=== PATIENT | male | born 1955 | race Caucasian/White ===

== ENCOUNTER 2025-03-13 08:36 | Day surgery (SDC) | payer MEDICARE, OTHER ==
[2025-03-13] MEDS: Lactated Ringers 1,000 ML IV SCH (09:17)
[2025-03-13] MEDS ORDERED: fentaNYL 100 MCG/2 ML SDV ONE (09:46)
[2025-03-13] MEDS ORDERED: Propofol 200 MG/20 ML SDV ONE (09:46)
[2025-03-13] MEDS ORDERED: Midazolam 1 MG/ML 2 ML SDV ONE (09:46)
== END 2025-03-13 12:17 | disposition home or self-care (01) ==
LOC: JP.SDS 08:36
PROVIDERS: ATTEND Surgery
DX: Z12.11 Encounter for screening for malignant neoplasm of colon (principal); D12.4 Benign neoplasm of descending colon; D12.8 Benign neoplasm of rectum
CPT/HCPCS: 00811; 45380; 45385; 88305; J2704; J3010; J7120; J2250

== ENCOUNTER 2025-04-18 18:05 | Emergency (ER) | payer MEDICARE, OTHER ==
[2025-04-18 19:15] LABS: BASOPHILS ABSOLUTE AUTO 0.03 K/uL (0.00-0.10); BASOPHILS PERCENT AUTO 0.5 % (0.1-1.3); EOSINOPHILS ABSOLUTE AUTO 0.05 K/uL (0.00-0.40); EOSINOPHILS PERCENT AUTO 0.8 % (0.0-5.4); IMMATURE GRAN PERCENT AUTO 0.3 % (0.0-0.7); LYMPHOCYTES ABSOLUTE AUTO 0.39 K/uL (0.8-3.3); LYMPHOCYTES PERCENT AUTO 6.1 % (11.4-47.7); MONOCYTES ABSOLUTE AUTO 0.52 K/uL (0.20-0.90); MONOCYTES PERCENT AUTO 8.2 % (3.3-12.6); NEUTROPHILS ABSOLUTE AUTO 5.34 K/uL (1.0-7.6); NEUTROPHILS PERCENT AUTO 84.1 % (40.0-78.1); PLATELET COUNT,PLT 159 K/uL (130-375); RED BLOOD CELL COUNT 5.23 M/uL (4.14-5.76); WHITE BLOOD CELL COUNT,WBC 6.4 K/uL (3.2-11.0)
[2025-04-18] MEDS: Ketorolac 15 MG/ML SDV IVPUSH ONE (19:22)
[2025-04-18 19:23] LABS: IMMATURE GRAN ABSOLUTE AUTO 0.02 K/uL (0.00-0.23)
[2025-04-18 19:50] LABS: A/G RATIO 0.8 (1.2-2.2); ALANINE AMINOTRANSFERASE,ALT 143 U/L (12-78); ASPARTATE AMNIOTRANSFERASE,AST 90 U/L (15-37); BILIRUBIN TOTAL 0.8 mg/dL (0.2-1.0); BLOOD UREA NITROGEN,BUN 20 mg/dL (7-18); CARBON DIOXIDE,CO2 26 mmol/L (21-32); CHLORIDE,CL 94 mmol/L (100-108); CREATININE 2.1 mg/dL (0.8-1.3); EST CRCL DRUG DOSING (CG) 36.46 mL/min; ESTIMATED GFR 33 mL/min (>60); GLUCOSE RANDOM 128 mg/dL (74-106); POTASSIUM,K 3.9 mmol/L (3.6-5.2); PROTEIN TOTAL,TP 7.7 g/dL (6.4-8.2); SODIUM,NA 131 mmol/L (140-148); TROPONIN I HIGH SENSITIVITY 10.9 pg/mL (<=60.3)
[2025-04-18] MEDS: Iopamidol 612 MG/ML 150 ML Bottle IV SCH (22:00)
[2025-04-18 23:47] LABS: APPEARANCE,URINE CLEAR (CLEAR); GLUCOSE,URINE NEGATIVE (NEGATIVE); OCCULT BLOOD,URINE TRACE-INTACT (NEGATIVE)
[2025-04-18 23:51] LABS: EPITHELIAL CELLS,URINE NOT SEEN
[2025-04-23 19:24] LABS: ANAPLASMA PHAGOCYTOPHILUM PCR Not Detected; BABESIA MICROTI BY PCR Not Detected; EHRLICHIA CHAFFEENSIS BY PCR Not Detected; EHRLICHIA EWINGII/CANIS BY PCR Not Detected; EHRLICHIA MURIS-LIKE BY PCR Not Detected
== END 2025-04-19 00:28 | disposition home or self-care (01) ==
LOC: JP.ED 18:05
DX: A93.8 Other specified arthropod-borne viral fevers (principal); E86.0 Dehydration; I10 Essential (primary) hypertension; Z79.899 Other long term (current) drug therapy
CPT/HCPCS: 36415; 71046; 74177; 80053; 81001; 83605; 83690; 84484; 85025; 87040; 87468; 87469; 87484; 87798; 93005; 93010; 96361; 96374; 99284; 99285; A9270; J1885; J7030; Q9967